=== PATIENT | male | born 1990 | race African-American/Black ===

== ENCOUNTER 2021-08-10 04:29 | Day surgery (SDC) | payer OTHER ==
[2021-08-08 12:07] VITALS: BMI 24.4
[2021-08-10] MEDS ORDERED: ROPIVACAINE HCL 0.5% 30ML VIAL ONE (08:36)
[2021-08-10] MEDS ORDERED: DEXAMETHASONE SOD PHOSPHATE 10 MG/1 ML VIAL ONE (08:36)
[2021-08-10] MEDS ORDERED: MIDAZOLAM HCL 2 MG/2 ML SINGLE DOSE VIAL ONE ×2 (08:48→08:50)
[2021-08-10] MEDS ORDERED: PROPOFOL 20 ML ONE ×6 (09:13→10:25)
[2021-08-10] MEDS ORDERED: HYDROmorphone HCl 2 MG/ML VIAL ONE (09:22)
[2021-08-10] MEDS ORDERED: ONDANSETRON 4 MG/2 ML VIAL ONE (09:32)
[2021-08-10] MEDS ORDERED: DEXAMETHASONE SOD PHOSPHATE 4 MG/1 ML VIAL ONE (09:32)
[2021-08-10] MEDS ORDERED: LIDOCAINE HCL/PF 2% SDV 5ML VIAL ONE (09:32)
[2021-08-10] MEDS ORDERED: ceFAZolin SODIUM 1 GM VIAL ONE (09:32)
[2021-08-10] MEDS ORDERED: ceFAZolin SODIUM 1 GM VIAL IVPB ONE (09:32)
[2021-08-10] MEDS ORDERED: ESMOLOL HCL 100,000 MCG/10 ML VIAL ONE (10:05)
[2021-08-10] MEDS ORDERED: ONDANSETRON 4 MG/2 ML VIAL IVPUSH PRN (10:07)
[2021-08-10] MEDS ORDERED: oxyCODONE HCL 5 MG TABLET PO PRN (10:07)
[2021-08-10] MEDS ORDERED: LACTATED RINGERS SOLUTION 1,000 ML IV SCH (10:15)
[2021-08-10 13:47] VITALS: BP 120/70; PULSE 68; TEMP 97.8
== END 2021-08-10 13:40 | disposition home or self-care (01) ==
LOC: JASU-SURG 04:29
PROVIDERS: ATTEND Orthopaedic Surgery
PROC: 0LU24JZ Supplement Left Shoulder Tendon with Synthetic Substitute, Percutaneous Endoscopic Approach (ICD-10-PCS; 2021-08-10)
PROC: 0RNK4ZZ Release Left Shoulder Joint, Percutaneous Endoscopic Approach (ICD-10-PCS; principal; 2021-08-10 08:45)
PROC: 0LQ24ZZ Repair Left Shoulder Tendon, Percutaneous Endoscopic Approach (ICD-10-PCS; 2021-08-10 08:45)
DX: M75.102 Unspecified rotator cuff tear or rupture of left shoulder, not specified as traumatic (principal)
CPT/HCPCS: 94760; J1100